=== PATIENT | female | born 2000 | race Caucasian/White ===

== ENCOUNTER 2018-12-25 01:28 | Emergency (ER) | payer SELFPAY ==
[~2018-12-25] VITALS: Ht 157.5 cm; Wt 73.0 kg
[2018-12-25] MEDS ORDERED: IBUPROFEN 800MG TABLET PO ONE (02:15)
[2018-12-25 04:48] VITALS: BP 127/76
== END 2018-12-25 04:50 | disposition home or self-care (01) ==
LOC: ER 01:28
DX: S42.032A Displaced fracture of lateral end of left clavicle, initial encounter for closed fracture (principal); M25.512 Pain in left shoulder; F12.10 Cannabis abuse, uncomplicated; W01.0XXA Fall on same level from slipping, tripping and stumbling without subsequent striking against object, initial encounter; Y93.01 Activity, walking, marching and hiking; Y92.89 Other specified places as the place of occurrence of the external cause; Y99.8 Other external cause status
CPT/HCPCS: 71045; 73000; 73030; 99283; A4565

== ENCOUNTER 2023-02-10 09:21 | Inpatient (IN) | payer MEDICAID ==
[~2023-02-10] VITALS: Ht 157.5 cm; Wt 82.6 kg
[2023-02-10] MEDS ORDERED: METHYLERGONOVINE MALEATE 0.2 MG/ML IM PRN (12:00)
[2023-02-10] MEDS ORDERED: NALOXONE HCL 0.4 MG/ML 1ML VIAL IM PRN (12:00)
[2023-02-10] MEDS ORDERED: LIDOCAINE HCL 1% 20ML VIAL (Pyxis) INJ INFIL SCH (12:00)
[2023-02-10] MEDS ORDERED: CARBOPROST TROMETHAMINE 250 MCG/ML AMPUL IM PRN (12:00)
[2023-02-10] MEDS ORDERED: ONDANSETRON HCL 4MG/2ML INJ IV NR (12:30)
[2023-02-10] MEDS ORDERED: CITRIC ACID/SODIUM CITRATE SOLN 30ML UDC PO NR (12:30)
[2023-02-10] MEDS: LACTATED RINGERS 1,000 ML IV SCH ×2 (12:35→16:55)
[2023-02-10 12:43] LABS: CLARITY URINE CLOUDY (CLEAR); COLOR URINE YELLOW (YELLOW); GLUCOSE URINE NEGATIVE (NEGATIVE); KETONES URINE NEGATIVE (NEGATIVE); LEUKOCYTE ESTERASE URINE TRACE (NEGATIVE); NITRITE URINE NEGATIVE (NEGATIVE); OCCULT BLOOD URINE NEGATIVE (NEGATIVE); PH URINE 6.5 (4.5-8.0); PROTEIN URINE TRACE (NEGATIVE); SPECIFIC GRAVITY URINE 1.021 (1.005-1.030)
[2023-02-10 13:05] LABS: BASOPHILS % 0.3 % (0.0-2.0); EOSINOPHILS % 0.4 % (0.0-5.0); HEMATOCRIT. 31.7 % (36.0-48.0); HEMOGLOBIN. 10.6 g/dL (12.0-16.0); LYMPHOCYTES % 17.3 % (20.0-50.0); MEAN CORPUSCULAR HEMOGLOBIN 29.4 pg (28.0-32.0); MEAN CORPUSCULAR HGB CONC 33.3 g/dL (31.0-37.0); MEAN CORPUSCULAR VOLUME 88.4 fL (81.0-99.0); MONOCYTES % 6.3 % (2.0-8.0); NEUTROPHILS % 75.7 % (40.0-76.0); PLATELET 298 x1000/uL (130-400); RED BLOOD CELL COUNT 3.59 mill/uL (4.2-5.4); RED CELL DISTRIBUTION WIDTH 13.4 % (11.6-14.6); WHITE BLOOD COUNT 11.3 x1000/uL (4.5-11.0)
[2023-02-10] MEDS: MISOPROSTOL 25 MCG TABLET VG SCH ×3 (13:05→21:15)
[2023-02-10 13:16] LABS: BACTERIA URINE 3+; SQUAMOUS EPITHELIAL CELL URINE 2+ /lpf (RARE/1+); YEAST URINE NONE SEEN
[2023-02-10 13:20] LABS: INR 0.9; PARTIAL THROMBOPLASTIN TIME 27.3 sec (23.4-31.0); PROTHROMBIN TIME 9.4 sec (9.6-11.0)
[2023-02-10 13:27] LABS: RAPID HIV SCREEN NEGATIVE (NEGATIVE)
[2023-02-10 13:32] LABS: *AMPHETAMINES SCREEN URINE NEGATIVE (NEGATIVE); *BARBITURATES SCREEN URINE NEGATIVE (NEGATIVE); *BENZODIAZEPINES SCREEN URINE NEGATIVE (NEGATIVE); *COCAINE SCREEN URINE NEGATIVE (NEGATIVE); CANNABINOID URINE SCREEN NEGATIVE (NEGATIVE); ECSTASY MDMA SCREEN URINE NEGATIVE (NEGATIVE); METHADONE URINE SCREEN NEGATIVE (NEGATIVE); PHENCYCLIDINE URINE SCREEN NEGATIVE (NEGATIVE)
[2023-02-10 15:24] LABS: OPIATES URINE SCREEN NEGATIVE (NEGATIVE)
[2023-02-10 16:40] LABS: RUBELLA IGG 13.7 IU/mL (4.99-10)
[2023-02-10 16:41] LABS: HEPATITIS B SURFACE ANTIGEN NEGATIVE
[2023-02-10] MEDS ORDERED: MEPERIDINE HCL/PF 50MG/ML CPJ IV NR (21:50)
[2023-02-11] MEDS ORDERED: ROPIVACAINE HCL/PF EPIDURAL 200 ML EPI SCH (03:00)
[2023-02-11] MEDS ORDERED: ROPIVACAINE HCL/PF EPIDURAL 200 ML EPI ONE (03:04)
[2023-02-11] MEDS ORDERED: FENTANYL CITRATE/PF 50MCG/ML 2ML VIAL ONE (03:05)
[2023-02-11] MEDS: LACTATED RINGERS 1,000 ML IV SCH (04:05)
[2023-02-11] MEDS: OXYTOCIN 30 UNITS/500ML NS PMX 500 ML IV SCH ×3 (07:59→18:19)
[2023-02-11] MEDS ORDERED: SODIUM CHLORIDE 0.9% 1,000 ML IR ONE (09:45)
[2023-02-11] MEDS ORDERED: IBUPROFEN 800MG TABLET PO PRN (13:45)
[2023-02-11] MEDS ORDERED: BENZOCAINE/LANOLIN/ALOE VERA SPRAY TOP PRN (13:45)
[2023-02-11] MEDS ORDERED: IBUPROFEN 400MG TABLET PO PRN (13:45)
[2023-02-11] MEDS: IBUPROFEN 600MG TABLET PO PRN ×2 (14:51→21:46)
[2023-02-11 19:45] VITALS: BP 117/71; PULSE 75; RESP 18; TEMP 98.3
[2023-02-11 19:50] VITALS: O2SAT 97
[2023-02-12] VITALS: BP 108/70; PULSE 71; RESP 18; TEMP 98.8
[2023-02-12 04:20] VITALS: BP 132/83; PULSE 91; RESP 20; TEMP 98.6
[2023-02-12] MEDS: IBUPROFEN 600MG TABLET PO PRN ×3 (05:04→20:50)
[2023-02-12 07:51] LABS: BASOPHILS % 0.2 % (0.0-2.0); EOSINOPHILS % 0.6 % (0.0-5.0); HEMATOCRIT. 27.2 % (36.0-48.0); HEMOGLOBIN. 9.5 g/dL (12.0-16.0); LYMPHOCYTES % 16.3 % (20.0-50.0); MEAN CORPUSCULAR HEMOGLOBIN 31.3 pg (28.0-32.0); MEAN CORPUSCULAR HGB CONC 34.9 g/dL (31.0-37.0); MEAN CORPUSCULAR VOLUME 89.6 fL (81.0-99.0); MEAN PLATELET VOLUME 9.4 fl (7.4-10.4); MONOCYTES % 5.7 % (2.0-8.0); NEUTROPHILS % 77.2 % (40.0-76.0); PLATELET 266 x1000/uL (130-400); RED BLOOD CELL COUNT 3.04 mill/uL (4.2-5.4); RED CELL DISTRIBUTION WIDTH 13.7 % (11.6-14.6); WHITE BLOOD COUNT 12.4 x1000/uL (4.5-11.0)
[2023-02-12] MEDS ORDERED: PRENATAL VIT/FE FUMARATE/FA TABLET PO SCH (09:00)
[2023-02-12 09:30] VITALS: BP 116/69; PULSE 84; RESP 18; TEMP 98.4; O2SAT 98
[2023-02-12] MEDS: FERROUS SULFATE 325MG TABLET PO SCH ×2 (12:30→18:21)
[2023-02-12 15:50] VITALS: BP 115/72; PULSE 86; RESP 18; TEMP 98.3
[2023-02-12 20:00] VITALS: BP 116/78; PULSE 84; RESP 18; TEMP 98.4; O2SAT 98
[2023-02-13 03:00] VITALS: BP 116/72; PULSE 82; RESP 18; TEMP 98.6
[2023-02-13] MEDS: IBUPROFEN 600MG TABLET PO PRN (03:14)
[2023-02-13 08:00] VITALS: O2SAT 98
[2023-02-13 08:56] VITALS: BP 135/82; PULSE 82; RESP 18; TEMP 98.3
== END 2023-02-13 11:00 | disposition home or self-care (01) | DRG 560 ==
LOC: RAD 09:21 → EDSTATUS 09:26 → OBSVTOIN 09:26 → 8 EST LDRP 09:26 → 8EST 02-12 00:06
PROVIDERS: ADMIT Obstetrics & Gynecology; ATTEND Obstetrics & Gynecology
PROC: 10D07Z6 Extraction of Products of Conception, Vacuum, Via Natural or Artificial Opening (ICD-10-PCS; principal; 2023-02-11)
PROC: 0HQ9XZZ Repair Perineum Skin, External Approach (ICD-10-PCS; 2023-02-11)
PROC: 3E0R3BZ Introduction of Anesthetic Agent into Spinal Canal, Percutaneous Approach (ICD-10-PCS; 2023-02-11)
PROC: 00HU33Z Insertion of Infusion Device into Spinal Canal, Percutaneous Approach (ICD-10-PCS; 2023-02-11)
DX: O48.0 Post-term pregnancy (principal); Z37.0 Single live birth; D62 Acute posthemorrhagic anemia; Z3A.41 41 weeks gestation of pregnancy; O77.0 Labor and delivery complicated by meconium in amniotic fluid; O70.0 First degree perineal laceration during delivery; O99.02 Anemia complicating childbirth
CPT/HCPCS: 36415; 76805; 76818; 80305; 81003; 85025; 86592; 86703; 86762; 86850; 86900; 87340; 99281; G0378; J2175; J2405; J2795; J3010; J7120; A4315; J2590